=== PATIENT | male | born 1955 | race Caucasian/White ===

== ENCOUNTER 2018-10-29 07:32 | Day surgery (SDC) | payer MEDICARE ==
[~2018-10-29] VITALS: Ht 177.8 cm; Wt 108.9 kg
[~2018-10-29 07:32] MED LIST: AMLO5 PO; Advair Hfa 230-12 GM INH; Aspir 8181 MG PO; FISH1000 PO; FURO40 PO; LORA10; LOSA50 PO; METF500C PO; METO50ER PO; NAPR500 PO; VITAMIN D31000 UNIT PO; Vitamin C100 M1
--- NOTE | 2018-10-29 07:52 | NUR ---
Ambulatory in Day SurgeryPatient states colon prep results clear. History, Chart, Medications and Allergies reviewed before start of procedure.Lungs clear T/O to Auscultation. Patient confirms NPO status and agrees with scheduled surgery. Pre-Op teaching done. Pt verbalizes understanding. Patient States Post-Procedure ride home has been arranged.
--- NOTE | 2018-10-29 08:16 | NUR ---
AT BEDSIDE. PT HAS NO COMPLAINTS.
--- NOTE | 2018-10-29 08:50 | NUR ---
FROM ENDO ROOM TO STEP VSS PATIENT WAKING.
--- NOTE | 2018-10-29 08:52 | NUR ---
10/29/18 0852 Dolly Ruvalcaba History, Chart, Medications and Allergies reviewed before start of procedure.PATIENT DETERMINED TO BE ASA APPROPRIATE FOR PROPOFOL SEDATION PRIOR TO START OF PROCEDURE BY .MONITOR INTACT WITH CONTINUOUS PULSE OXIMETRY AND INTERMITTENT BP.3-LEAD EKG REVIEWED WITH PHYSICIAN PRIOR TO START OF PROCEDURE.O2 VIA N/C INTACT THROUGHOUT SEDATION/PROCEDURE.
--- NOTE | 2018-10-29 09:13 | NUR ---
DISCHARGED WITH ALL BELONGINGS AND DISCHARGE INSTRUCTIONS. VSS ESCORTED OUT WITH RN AND . PATIENT HEADING DOWN STAIRS TO CAFE FOR BREAKFAST
--- NOTE | 2018-10-29 13:20 | NUR ---
The patient gave this registered nursing professor permission to participate and be involved in his care 10/29/18.
== END 2018-10-29 22:53 | disposition home or self-care (01) ==
LOC: ORSCMMR 07:32 → ORD 08:30 → ORSCMMR 22:53
PROVIDERS: Internal Medicine Gastroenterology
PROC: 0DBN8ZX Excision of Sigmoid Colon, Via Natural or Artificial Opening Endoscopic, Diagnostic (ICD-10-PCS; principal; 2018-10-29 08:30)
PROC: 0DBK8ZX Excision of Ascending Colon, Via Natural or Artificial Opening Endoscopic, Diagnostic (ICD-10-PCS; principal; 2018-10-29 08:30)
DX: Z12.11 Encounter for screening for malignant neoplasm of colon (principal); D12.2 Benign neoplasm of ascending colon; K63.5 Polyp of colon; Z86.010 Personal history of colon polyps; I10 Essential (primary) hypertension; E11.9 Type 2 diabetes mellitus without complications; Z79.84 Long term (current) use of oral hypoglycemic drugs; Z79.899 Other long term (current) drug therapy
CPT/HCPCS: 82947; 88305; J7120

== ENCOUNTER 2020-10-06 14:38 | Emergency (ER) | payer MEDICARE ==
[~2020-10-06] VITALS: Ht 172.7 cm; Wt 113.4 kg
[2020-10-06 17:58] LABS: Source, Urine Clean Catch
[2020-10-06 18:08] LABS: Appearance, Urine Clear (Clear); Bilirubin, Urine Neg (Neg); Blood, Urine Neg (Neg); Color, Urine Yellow (P-Yellow); Glucose Qualitative, Urine 1+ (Neg); Ketones, Urine Neg (Neg); Leukocyte Esterase, Urine Neg (Neg); Nitrite, Urine Neg (Neg); Protein, Urine Neg (Neg); Urobilinogen, Urine NORM (Normal)
== END 2020-10-06 18:48 | disposition home or self-care (01) ==
LOC: ER 14:38
PROVIDERS: Physician Assistant
DX: N99.89 Other postprocedural complications and disorders of genitourinary system (principal); R33.8 Other retention of urine; I10 Essential (primary) hypertension; E11.9 Type 2 diabetes mellitus without complications; Z79.84 Long term (current) use of oral hypoglycemic drugs; Z79.899 Other long term (current) drug therapy; Y83.8 Other surgical procedures as the cause of abnormal reaction of the patient, or of later complication, without mention of misadventure at the time of the procedure
CPT/HCPCS: 51702; 81003; 99283-25

== ENCOUNTER 2020-10-08 19:27 | Inpatient (IN) | payer MEDICARE ==
[~2020-10-08] VITALS: Ht 172.7 cm; Wt 122.7 kg
[2020-10-08 20:03] LABS: BASOPHILS ABSOLUTE AUTO 0.02 K/mm3 (0.00-0.23); BASOPHILS PERCENT AUTO 0 % (0-2); EOSINOPHILS ABSOLUTE AUTO 0.01 K/mm3 (0.00-0.68); EOSINOPHILS PERCENT AUTO 0 % (0-6); Hematocrit 20.2 % (37.0-53.0); Hemoglobin 6.2 g/dL (13.5-17.5); IMMATURE GRAN ABSOLUTE AUTO 0.07 K/mm3 (0.00-0.10); IMMATURE GRAN PERCENT AUTO 1 % (0-1); LYMPHOCYTES ABSOLUTE AUTO 1.06 K/mm3 (0.84-5.20); LYMPHOCYTES PERCENT AUTO 8 % (21-46); MONOCYTES ABSOLUTE AUTO 0.85 K/mm3 (0.16-1.47); MONOCYTES PERCENT AUTO 7 % (4-13); Mean Corpuscular HGB 23.4 pg (26.0-34.0); Mean Corpuscular HGB Conc 30.7 g/dL (31.5-36.5); Mean Corpuscular Volume 76 fL (80-100); Mean Platelet Volume 9.3 fL (9.1-12.4); NEUTROPHILS ABSOLUTE AUTO 10.61 K/mm3 (1.96-9.15); NEUTROPHILS PERCENT AUTO 84 % (41-73); NRBC ABSOLUTE 0.02 K/mm3 (0.00-0.02); NRBC Auto 0.2 /100 WBC (0.0-0.2); Platelet Count 315 K/mm3 (150-400); RDW Coefficient Variation 17.9 % (11.7-14.2); RDW Standard Deviation 49.3 fL (35.1-46.3); Red Blood Cell Count 2.65 M/mm3 (4.30-5.90); White Blood Cell Count 12.62 K/mm3 (4.00-11.30)
[2020-10-08 20:21] LABS: Troponin I 0.317 ng/mL (0.000-0.040)
[2020-10-08 20:33] LABS: Alanine Aminotransfer (ALT/SGP 68 U/L (12-78); Albumin/Globulin Ratio 0.7 (0.8-1.8); Alk Phos 107 U/L (50-136); Anion Gap 13 mmol/L (6-16); Aspartate Aminotrans (AST/SGOT 67 U/L (12-37); Bilirubin, Total 0.6 mg/dL (0.1-1.0); Blood Urea Nitrogen 23 mg/dL (8-24); Bun/Creatinine Ratio 25.5 (12.0-20.0); CO2, Blood 19 mmol/L (21-32); Calcium, Blood 8.6 mg/dL (8.5-10.1); Chloride, Blood 84 mmol/L (98-108); Globulin, Blood 4.1 g/dL (2.2-4.0); Glomerular Filtration Rate >60 (60-); Glucose, Blood 173 mg/dL (70-99); Potassium, Blood 3.8 mmol/L (3.5-5.5); Sodium, Blood 116 mmol/L (136-145); Total Protein, Blood 7.1 g/dL (6.4-8.2)
[2020-10-08 22:29] LABS: Thyroid Stimulating Hormone 0.483 uIU/mL (0.360-4.800)
[2020-10-08 23:22] LABS: Uric Acid, Blood 8.2 mg/dL (3.5-7.2)
[2020-10-09] MEDS ORDERED: ACET500 PO (00:43)
[2020-10-09 04:16] LABS: Anion Gap 13 mmol/L (6-16); Blood Urea Nitrogen 20 mg/dL (8-24); Bun/Creatinine Ratio 22.1 (12.0-20.0); CO2, Blood 22 mmol/L (21-32); Calcium, Blood 8.5 mg/dL (8.5-10.1); Chloride, Blood 86 mmol/L (98-108); Creatinine, Blood 0.91 mg/dL (0.60-1.20); Glomerular Filtration Rate >60 (60-); Glucose, Blood 151 mg/dL (70-99); Phosphorus, Blood 2.8 mg/dL (2.5-4.9); Potassium, Blood 3.6 mmol/L (3.5-5.5); Sodium, Blood 121 mmol/L (136-145); Troponin I 0.342 ng/mL (0.000-0.040)
[2020-10-09 06:20] LABS: BASOPHILS ABSOLUTE AUTO 0.01 K/mm3 (0.00-0.23); BASOPHILS PERCENT AUTO 0 % (0-2); EOSINOPHILS ABSOLUTE AUTO 0.04 K/mm3 (0.00-0.68); EOSINOPHILS PERCENT AUTO 0 % (0-6); Hematocrit 21.2 % (37.0-53.0); Hemoglobin 6.6 g/dL (13.5-17.5); IMMATURE GRAN ABSOLUTE AUTO 0.06 K/mm3 (0.00-0.10); IMMATURE GRAN PERCENT AUTO 1 % (0-1); LYMPHOCYTES ABSOLUTE AUTO 1.24 K/mm3 (0.84-5.20); LYMPHOCYTES PERCENT AUTO 11 % (21-46); MONOCYTES PERCENT AUTO 9 % (4-13); Mean Corpuscular HGB 23.9 pg (26.0-34.0); Mean Corpuscular HGB Conc 31.1 g/dL (31.5-36.5); Mean Corpuscular Volume 77 fL (80-100); Mean Platelet Volume 9.3 fL (9.1-12.4); NEUTROPHILS ABSOLUTE AUTO 9.09 K/mm3 (1.96-9.15); NEUTROPHILS PERCENT AUTO 80 % (41-73); NRBC ABSOLUTE 0.03 K/mm3 (0.00-0.02); NRBC Auto 0.3 /100 WBC (0.0-0.2); Platelet Count 313 K/mm3 (150-400); RDW Coefficient Variation 18.5 % (11.7-14.2); RDW Standard Deviation 51.5 fL (35.1-46.3); Red Blood Cell Count 2.76 M/mm3 (4.30-5.90); White Blood Cell Count 11.44 K/mm3 (4.00-11.30)
--- NOTE | 2020-10-09 06:47 | NUR ---
SHIFT SUMMARY PT ARRIVED TO THE ICU VIA GURNEY. TX TO BED WITH STANDBY ASSIST. ADMITTED TO ICU FOR POTENTIAL ADMINISTRATION OF HYPERTONIC SOLUTION FOR A SODIUM LEVEL OF 116 AND HGB OF 6.2. DAUGHTER AT BEDSIDE DURING INITIAL ASSESSMENT. PT ALERT AND ORIENTED BUT DAUGHTER SAYS HE IS SLOWER TO RESPOND THAN NORMAL AND HE IS CURRENTLY MORE FORGETFUL THAN USUAL. PT UNABLE TO REMAIN STILL FOR LONGER THAN 5 MINUTES. CONTINOUSLY ON THE CALL LIGHT REQUESTING TO REPOSITION, STATING "I HAVE NOT BEEN ABLE TO GET COMFORTABLE SINCE THE SURGERY" DENIES SEVERE PAIN, HAS BEEN TAKING TYENOL TO HELP WITH THE PAIN. PT HAD LUMBAR SX ON THE . ISABEL DRAIN IN PLACE. INCISION SITE OPEN TO AIR. PT PRESCRIBED A BACK BRACE BUT WILL NOT COMPLY DUE TO IT CAUSING HIM TO FEEL MORE SHORT OF BREATH. APPLIED THE BACK BRACE TO PT FOR APPROXIMATELY 30 MINUTES BUT PT QUICKLY BEGAN PULLING AT CORDS, TRYING TO REMOVE THE BRACE. DAUGHTER STATES "PT IS NOT COMPLYING WITH THE RECOVERY PLAN AND WILL NOT WEAR HIS BACK BRACE" PT SCHEDULED FOR FOLLOW UP WITH THE SURGEON IN [place] TODAY, 10-09-20. PT HAS NOT BEEN ABLE TO EAT SINCE THE DUE TO NAUSEA, STATES "ALL I HAVE HAD IS SPAGHETTI AND AN EGG SINCE THE ". FREQUENTLY REQUESTING FOOD BUT C/O NAUSEA, ADVISED PT OF NEED FOR NAUSEA TO DIMINISH PRIOR TO EATING. TREATED NAUSEA c PRN ZOFRAN. PT ALSO HAVING ISSUES WITH URINATION SECONDARY TO SURGERY. PT DIAGNOSED WITH PNEUMONIA 3 WEEKS AGO. COMPLETED 10 DAY COURSE OF ABX PRIOR TO BACK SX. HAVING URINARY RETENTION POST OP. SCHMITZ CATH DUE TO URINARY RETENTION. 24 HR URINE IN PROGRESS. WILL CONTINUE TO MONITOR, REPORT TO ONCOMING NURSE.
[2020-10-09 12:56] LABS: Hematocrit 24.3 % (37.0-53.0); Hemoglobin 7.7 g/dL (13.5-17.5)
[2020-10-09 16:27] LABS: Stool Occult Blood Guaiac 1 Neg (Neg)
--- NOTE | 2020-10-09 18:14 | NUR ---
RECEIVED PT FROM ICU, ALERT AND ORIENTED X4, PT MAKES NO C/O SOB OR PAIN. PT IN CHAIR EATING DINNER, CALM AND COOPERATIVE. PT WILL CONT. TO BE MONITORED AND MEDICATED PER EMAR. PT HAS FC AND 24H URIN COLLECTION. ISABEL DRAIN DRAINING AND WNL. STAFF WILL CONT. TO MONITOR FOR CHANGES.
--- NOTE | 2020-10-10 02:08 | NUR ---
PHYSICIAN CORRESPONDENCE CONTINUES TO HAVE HICCUPS WITHOUT RELIEF FROM CURRENT MEDICATION ORDERS OR OTHER NON-PHARMACOLOGIC SUGGESTIONS. NEW ORDER FOR REGLAN IV. ALSO, NO ORDER FOR SCHMITZ CATHETER WHICH WAS PLACED OUTPT ACCORDING TO PATIENT FOR RETENTION AFTER BACK SX. NEW ORDER FOR URINE CATHETER PLACED PER ON-CALL PHYSICIAN.
[2020-10-10 04:34] LABS: Protein, Urine Quantitative 24.4 mg/dL (0.0-11.9)
[2020-10-10 05:24] LABS: Hematocrit 23.5 % (37.0-53.0); Hemoglobin 7.4 g/dL (13.5-17.5)
[2020-10-10 05:47] LABS: Albumin, Blood 2.8 g/dL (3.4-5.0); Anion Gap 10 mmol/L (6-16); Blood Urea Nitrogen 15 mg/dL (8-24); Bun/Creatinine Ratio 17.5 (12.0-20.0); CO2, Blood 24 mmol/L (21-32); Calcium, Blood 8.4 mg/dL (8.5-10.1); Chloride, Blood 89 mmol/L (98-108); Creatinine, Blood 0.86 mg/dL (0.60-1.20); Glomerular Filtration Rate >60 (60-); Glucose, Blood 137 mg/dL (70-99); Magnesium, Blood 2.1 mg/dL (1.6-2.4); Phosphorus, Blood 1.9 mg/dL (2.5-4.9); Potassium, Blood 3.2 mmol/L (3.5-5.5); Sodium, Blood 123 mmol/L (136-145)
--- NOTE | 2020-10-10 08:06 | NUR ---
SHIFT SUMMARY A/O, ABLE TO MAKE NEEDS KNOWN. COOPERATIVE WITH CARE. CALLS AND ANSWERS QUESTIONS APPROPRIATELY. NO C/O PAIN/DISCOMFORT. DID HOWEVER COMPLAIN OF HICCUPS WHICH ARE NOT NEW TO HIM; NEW ORDER FOR REGLAN PER ON-CALL PROVIDER. STATED REGLAN HELPED HIM OVERALL AND WAS ABLE TO GET RELIEF. 24 HR URINE SENT. SCHMITZ CATH REMAINS SECURED AND DRAINING TO GRAVITY. ISABEL DRAIN CONTINUES TO DRAIN WITHOUT COMPLICATIONS. DID NOT APPEAR TO REST MUCH OVERNIGHT; UP AND DOWN IN CHAIR MOST OF NIGHT. NOTED DARK COLORED LOOSE STOOL. CALL LIGHT AND BELONGINGS WITHIN REACH. REPORT GIVEN TO ONCOMING RN.
--- NOTE | 2020-10-10 13:35 | NUR ---
SCHMITZ CATH D'C. PATIENT AWARE NEEDS TO USE URINAL. FLOMAX GIVEN PRIOR. AWARE NEEDS TO URINATE WITHIN 6 HOURS. WCTM
--- NOTE | 2020-10-10 16:13 | NUR ---
ALERT. ORIENTED. VERY DROWSEY TODAY. HAS URINATED SINCE SCHMITZ HAS BEEN D'C. ONE PERSON TO CHAIR OR BATHROOM. RED DRAINAGE FROM ISABEL DRAIN ON BACK. LONG SURGICAL SCAR MIDDLE LOWER BACK LOOKS TO BE HEALING. UNLABORED RESPIRATIONS. EDEMA BLE +1. TELE ON AND RUNNING SR IN 90'S PER TECH. COOPERATIVE. ABLE TO MAKE NEEDS KNOWN. WCTM.
--- NOTE | 2020-10-11 05:46 | NUR ---
NAILHEAD SETTER SUMMARY PT AAOX4 AND PLEASANT. 1 ASSIST FROM BED TO CHAIR W/ FWW. PT HAD SCHMITZ CATH DC'D ON DAYSHIFT AND HAS VOIDED MULTIPLE TIMES TONIGHT WITH THE URINAL. URINE OUTPUT JUST OVER 1200 ML TONIGHT. MEDICATED WITH TYLENOL FOR PAIN X1. PT HAS SPENT MOST OF THE NIGHT IN THE RECLINER PT STATES IT IS MORE COMFORTABLE. MINIMAL DRAINAGE NOTED IN ISABEL DRAIN IN PT'S BACK. VSS, WILL CONTINUE TO MONITOR.
[2020-10-11 06:01] LABS: Hematocrit 26.3 % (37.0-53.0); Hemoglobin 8.1 g/dL (13.5-17.5)
[2020-10-11 06:24] LABS: Albumin, Blood 2.7 g/dL (3.4-5.0); Anion Gap 5 mmol/L (6-16); Blood Urea Nitrogen 11 mg/dL (8-24); Bun/Creatinine Ratio 13.2 (12.0-20.0); CO2, Blood 29 mmol/L (21-32); Calcium, Blood 8.7 mg/dL (8.5-10.1); Chloride, Blood 95 mmol/L (98-108); Creatinine, Blood 0.83 mg/dL (0.60-1.20); Glomerular Filtration Rate >60 (60-); Glucose, Blood 118 mg/dL (70-99); Magnesium, Blood 2.2 mg/dL (1.6-2.4); Phosphorus, Blood 2.2 mg/dL (2.5-4.9); Sodium, Blood 129 mmol/L (136-145)
[2020-10-11] MEDS ORDERED: BUME2 PO (12:50)
[2020-10-11] MEDS ORDERED: TAMS.4ER PO (12:53)
--- NOTE | 2020-10-11 13:30 | NUR ---
REVIEW D'C WITH PATIENT. AWARE HAS MED AT [facility]. REVIEW ALL MEDS AND ANY CHANGES AND HOW/WHEN TO TAKE. AWARE HAS APPT W/SURGEON ON 10/16 AND F/U W/ 10/17 AT 9AM. AWARE NEEDS TO CALL FOR F/U. DISCUSS COUGH AND DEEP BREATHING. DRESSING TO BACK DRY AND INTACT WAS CHANGED YESTERDAY BY THIS RN. ISABEL DRAIN WITH REDDISH FLUID. ANSWER ALL QUESTIONS. AND CRYPTOLOGIST TO TAKE PATIENT OUT TO POV.
== END 2020-10-11 14:07 | disposition home or self-care (01) | DRG 640 ==
LOC: ER 19:27 → MEDS 22:26 → ICUW 22:26 → ER 10-09 00:17 → ICUE 10-09 00:17 → ICUW 10-09 00:17 → ICUE 10-09 00:20 → ICUW 10-09 00:20 → ICUE 10-09 13:09 → MEDS 10-09 17:34 → ICUE 10-09 17:34 → MEDS 10-11 14:07
PROVIDERS: Emergency Medicine; Internal Medicine; Internal Medicine Nephrology; ADMIT Internal Medicine
PROC: 30233N1 Transfusion of Nonautologous Red Blood Cells into Peripheral Vein, Percutaneous Approach (ICD-10-PCS; principal; 2020-10-08)
PROC: 8E0ZXY6 Isolation (ICD-10-PCS; 2020-10-08)
DX: E87.1 Hypo-osmolality and hyponatremia (principal); J96.01 Acute respiratory failure with hypoxia; I24.8 Other forms of acute ischemic heart disease; N17.9 Acute kidney failure, unspecified; D64.9 Anemia, unspecified; E87.70 Fluid overload, unspecified; I12.9 Hypertensive chronic kidney disease with stage 1 through stage 4 chronic kidney disease, or unspecified chronic kidney disease; E11.22 Type 2 diabetes mellitus with diabetic chronic kidney disease; Z20.828 Contact with and (suspected) exposure to other viral communicable diseases; N18.2 Chronic kidney disease, stage 2 (mild); Z85.51 Personal history of malignant neoplasm of bladder; Z87.891 Personal history of nicotine dependence; Z98.1 Arthrodesis status; E83.39 Other disorders of phosphorus metabolism; E87.6 Hypokalemia; E61.1 Iron deficiency
CPT/HCPCS: 36415; 36430; 71045; 71260; 80053; 80069; 81050; 82272; 82533; 82728; 82947; 83036; 83540; 83550; 83735; 83880; 83930; 83935; 84156; 84295; 84443; 84484; 84550; 85014; 85018; 85025; 86850; 86900; 86901; 86920; 93005; 93010; 93306; 94640; 94760; 96361; 96376; 99285-25; A9270; A9270-GY; J1815; J1940; J2405; J2543; J2765; J2916; J3480; J7030; J7050; J7060; P9016; Q9967

== ENCOUNTER 2022-02-20 09:05 | Day surgery (SDC) | payer MEDICARE ==
[~2022-02-20] VITALS: Ht 177.8 cm; Wt 107.7 kg
[~2022-02-20 09:05] MED LIST changes: +ACET500 PO; +BUME2 PO; +LORA10ER PO; +POTA10T PO; +SODCHL1 PO; +TAMS.4ER PO; +iron sulfate PO
--- NOTE | 2022-02-20 10:28 | NUR ---
02/20/22 1028 Ashley Rock History, Chart, Medications and Allergies reviewed before start of procedure. Patient confirms NPO status and agrees with scheduled surgery. 3-LEAD EKG REVIEWED WITH PHYSICIAN PRIOR TO START OF PROCEDURE. MONITOR INTACT WITH CONTINUOUS PULSE OXIMETRY AND INTERMITTENT BP. PATIENT DETERMINED TO BE ASA APPROPRIATE FOR PROPOFOL SEDATION PRIOR TO START OF PROCEDURE BY . Bite Block Placed & REMOVED AT END OF CASE.
--- NOTE | 2022-02-20 12:10 | NUR ---
Discharge instructions reviewed with patient. Patient verbalizes understanding. Copy given to patient to take home. RX FOR OMEPRAZOLE CALLED TO [facility]. PT TOLERATED WATER, NO C/O. Discharged via wheelchair to private car for ride home.
== END 2022-02-20 12:18 | disposition home or self-care (01) ==
LOC: ORSCMMR 09:05 → ORD 10:15 → ORSCMMR 10:15
PROVIDERS: Internal Medicine Gastroenterology
PROC: 0DB78ZX Excision of Stomach, Pylorus, Via Natural or Artificial Opening Endoscopic, Diagnostic (ICD-10-PCS; principal; 2022-02-20 10:15)
PROC: 0DBN8ZX Excision of Sigmoid Colon, Via Natural or Artificial Opening Endoscopic, Diagnostic (ICD-10-PCS; principal; 2022-02-20 10:15)
PROC: 0DBP8ZX Excision of Rectum, Via Natural or Artificial Opening Endoscopic, Diagnostic (ICD-10-PCS; principal; 2022-02-20 10:15)
PROC: 0DBK8ZX Excision of Ascending Colon, Via Natural or Artificial Opening Endoscopic, Diagnostic (ICD-10-PCS; principal; 2022-02-20 10:15)
PROC: 0DB98ZX Excision of Duodenum, Via Natural or Artificial Opening Endoscopic, Diagnostic (ICD-10-PCS; principal; 2022-02-20 10:15)
PROC: 0DBE8ZX Excision of Large Intestine, Via Natural or Artificial Opening Endoscopic, Diagnostic (ICD-10-PCS; principal; 2022-02-20 10:15)
PROC: 0DBL8ZX Excision of Transverse Colon, Via Natural or Artificial Opening Endoscopic, Diagnostic (ICD-10-PCS; principal; 2022-02-20 10:15)
DX: D50.0 Iron deficiency anemia secondary to blood loss (chronic) (principal); K62.5 Hemorrhage of anus and rectum; D12.2 Benign neoplasm of ascending colon; D12.3 Benign neoplasm of transverse colon; K52.832 Lymphocytic colitis; K29.70 Gastritis, unspecified, without bleeding; K57.30 Diverticulosis of large intestine without perforation or abscess without bleeding; Z86.010 Personal history of colon polyps; I10 Essential (primary) hypertension; E11.9 Type 2 diabetes mellitus without complications; Z85.51 Personal history of malignant neoplasm of bladder; Z79.899 Other long term (current) drug therapy
CPT/HCPCS: 82947; 88305; 88342; A9270; J2250; J2704; J7120

== ENCOUNTER 2023-03-25 11:06 | Day surgery (SDC) | payer OTHER ==
[~2023-03-25 11:06] MED LIST changes: +Amaryl1 MG PO; +CATAPRES0.1 MG PO; +FERSU300 PO; +MAGNESIUM OXID500 MG PO; +OMEP20ER PO; +TRAM50 PO
[2023-03-25] MEDS ORDERED: METO50 PO (11:26)
[2023-03-25] MEDS ORDERED: FURO40 PO (11:28)
[2023-03-25 11:30] VITALS: BP 129/93
--- NOTE | 2023-03-25 13:40 | NUR ---
PT BACK TO THE RECOVERY ROOM VIA BED AFTER PROCEDURE. AWAKE AND ALERT, DENIES ANY PAIN OR DISCOMFORT. RIGHT GROIN SITE WITH TEGADERM IN PLACE, NO BLEEDING OR SWELLING NOTED. VSS, CALL LIGHT IN REACH.
[2023-03-25 13:41] VITALS: BP 157/71
[2023-03-25 13:45] VITALS: BP 159/69
[2023-03-25 14:00] VITALS: BP 148/62
--- NOTE | 2023-03-25 14:26 | NUR ---
PT CONTINUES TO EAT LUNCH, ADDITIONAL PO FLUIDS GIVEN PER REQUEST. VSS, CALL LIGHT IN REACH. RIGHT GROIN SITE REMAINS SOFT AND NON-TENDER. HEAD OF BED ELEVATED TO 45 DEGREES.
[2023-03-25 14:31] VITALS: BP 148/124
[2023-03-25 14:58] VITALS: BP 159/97
--- NOTE | 2023-03-25 15:02 | NUR ---
PT AMBULATED TO THE BATHROOM WITHOUT DIFFICULTY, RIGHT GROIN REMAINS SOFT AND NON-TENDER. NO BLEEDING OR SWELLING NOTED AT SITE.
--- NOTE | 2023-03-25 15:26 | NUR ---
IV DC'D, CATH INTACT. PT VERBALIZED UNDERSTANDING OF DC INSTRUCTIONS AND FOLLOW UP INFO. RIGHT GROIN SITE REMAINS SOFT AND NON-TENDER. NO BLEEDING OR SWELLING AT SITE. PT OUT TO CAR VIA WHEELCHAIR.
== END 2023-03-25 15:55 | disposition home or self-care (01) ==
LOC: MHTC 11:06
DX: I70.1 Atherosclerosis of renal artery (principal); N26.1 Atrophy of kidney (terminal); I10 Essential (primary) hypertension; E11.9 Type 2 diabetes mellitus without complications; I25.10 Atherosclerotic heart disease of native coronary artery without angina pectoris
CPT/HCPCS: 76937; 99152; 99153; C1760; C1769; C1887; C1894; J1644; J2250; J3010; J7030; J7050; Q9967

== ENCOUNTER → 2024-04-28 | Outpatient (CLI) | payer OTHER ==
[~2024-04-28] MED LIST changes: +ASPI81CH PO; +Amlodipine Bes2.5 MG PO; +CLOP75; +Crestor40 MG; +Flonase 0.05% N16 GM; +Loratadine10 MG; +METO50 PO; +SOAANZ40 M1 PO
[2024-04-28 16:08] LABS: Percent Saturation 69.6 % (20.0-50.0)
== END ==
LOC: LAB SHORT 15:00 → LAB 15:00
PROVIDERS: Internal Medicine Hematology & Oncology
DX: D53.9 Nutritional anemia, unspecified (principal); E61.1 Iron deficiency
CPT/HCPCS: 82607; 82728; 82746; 83540; 83550

== ENCOUNTER 2024-06-02 12:21 | Inpatient (IN) | payer OTHER ==
[~2024-06-02] VITALS: Ht 177.8 cm; Wt 102.9 kg
[~2024-06-02 12:21] MED LIST changes: +ALBU90OI INH; +ALLO100 PO; +Acerola C500 MG PO; +B COMPLEX FORM0.4 MG PO; +CALC.25 PO; +CENTRUM SILVER1 EAC2 PO; +DILT180 PO; +HUMALOG KW100 UNIT/1 SC; +INSULANPEN SC; +IPRAT-ALBUT 0.5-3 ML INH; +JARDIANCE10 MG PO; +METO100ER PO; +TAMSULOSIN HCL0.4 M1 PO; +TORSE20 PO; +VISBIOME 112.51 EACH PO; +[UNRECOGNIZED DRUG - OTHER] PO
[2024-06-02 13:32] LABS: Hematocrit 21.6 % (37.0-53.0); Mean Corpuscular HGB Conc 32.4 g/dL (31.5-36.5); Mean Corpuscular Volume 93 fL (80-100); Mean Platelet Volume 10.9 fL (9.1-12.4); Platelet Count 65 K/mm3 (150-400); RDW Coefficient Variation 18.4 % (11.7-14.2); RDW Standard Deviation 62.5 fL (35.1-46.3); Red Blood Cell Count 2.33 M/mm3 (4.30-5.90)
[2024-06-02 13:56] LABS: Albumin, Blood 2.2 g/dL (3.4-5.0); Albumin/Globulin Ratio 0.4 (0.8-1.8); Bilirubin, Total 0.6 mg/dL (0.1-1.0); Bun/Creatinine Ratio 13.9 (12.0-20.0); Calcium, Blood 9.2 mg/dL (8.5-10.1); Creatinine, Blood 2.45 mg/dL (0.60-1.20); Globulin, Blood 4.9 g/dL (2.2-4.0); Potassium, Blood 3.3 mmol/L (3.5-5.5); Total Protein, Blood 7.1 g/dL (6.4-8.2)
[2024-06-02 14:06] LABS: White Blood Cell Count 0.24 K/mm3 (4.00-11.30)
[2024-06-02] MEDS ORDERED: Mag Hydrox/AL Hydrox/Simeth 30 ML UDC PO ONE (14:15)
[2024-06-02] MEDS ORDERED: NS 1,000 ML IV SCH ×2 (14:15→16:25)
[2024-06-02] MEDS ORDERED: Lidocaine 2% Viscous Soln 15 ML UDC PO ONE (14:15)
[2024-06-02 14:22] LABS: BASOPHILS PERCENT MAN 0 % (0-2); EOSINOPHILS PERCENT MAN 4 % (0-6); LYMPHOCYTES % ATYPICAL MANUAL 4 % (0-0); LYMPHOCYTES ABSOLUTE MAN 0.21 K/mm3 (0.84-5.20); LYMPHOCYTES PERCENT MAN 84 % (21-46); MONOCYTES PERCENT MAN 4 % (4-13); SEG NEUTROPHILS PERCENT MAN 4 % (41-73); TOTAL CELLS COUNTED 25
[2024-06-02] MEDS ORDERED: Phenyleph/Mineral Oil/Petrolat 1 APPLIC/57 GM Tube PR ONE (15:50)
[2024-06-02] MEDS ORDERED: Cefepime HCl 2,000 MG in NS 100 ML IV ONE (16:25)
[2024-06-02] MEDS ORDERED: Vancomycin HCL 2,000 MG in NS 500 ML IV ONE (16:55)
[2024-06-02] MEDS ORDERED: Ondansetron HCl 2 MG / ML 2ML Vial IV PRN (18:00)
[2024-06-02] MEDS ORDERED: Acetaminophen 325 MG TABLET PO PRN (18:00)
[2024-06-02] MEDS ORDERED: Ipratropium/Albuterol SulF 2.5-0.5MG/3 ML Amp INH PRN (18:10)
[2024-06-02] MEDS ORDERED: Albuterol HFA200 ACT/6.7 GM INH INH PRN (18:50)
[2024-06-02] MEDS ORDERED: Insulin Glargine-Yfgn 100 Unit/mL 3 ML SYR SC SCH (19:00)
[2024-06-02 20:47] VITALS: BP 125/74
--- NOTE | 2024-06-02 20:54 | NUR ---
ADMISSION REPORT RECEIVED FROM ER NURSE. PATIENT ARRIVED TO PCU 18. PATIENT REQUESTING TO STAND AND TRANSFER TO BED. PATIENT SLOW MOVING BUT IS ABLE TO TRANSFER WITH STAFF ASSISTANCE. PATIENT ALERT, ORIENTED x4, ABLE TO ANSWER ALL QUESTIONS APPROPRIATELY. PATIENT PALE IN COLOR. TACHYPNEIC WITH MOVEMENT. BP STABLE. ON MONITOR, PATIENT INITIALLY SATTING 77% ON RA, PATIENT PLACED ON 6L NC AND WAS ABLE TO RECOVER AFTER 5 MINUTES OF DEEP BREATHING. PATIENT TITRATED DOWN TO 3L, TOLERATING WELL, SPO2 MID 90s. RT NOTIFIED. TELE READING AFIB 90s. LOW GRADE FEVER OF 99.5 ON INITAL ASSESSMENT. NAUSEOUS ON ARRIVAL, ZOFRAN GIVEN PER EMAR. TOLERATED OTHER PO MEDICATION. PATIENT ORIENTED TO ROOM AND CALL LIGHT SYSTEM. BED IN LOW POSITION, HAS CALL LIGHT IN REACH.
[2024-06-02] MEDS ORDERED: Ascorbic Acid 250 MG Chew PO SCH (21:00)
[2024-06-02] MEDS ORDERED: Tamsulosin HCl 0.4 MG Cap PO SCH (21:00)
[2024-06-02 22:41] LABS: Magnesium, Blood 1.8 mg/dL (1.6-2.4)
[2024-06-02 22:42] LABS: Potassium, Blood 3.3 mmol/L (3.5-5.5)
[2024-06-02 23:35] VITALS: BP 121/65
[2024-06-02] MEDS ORDERED: Promethazine HCl 12.5 MG Supp PR ONE (23:45)
--- NOTE | 2024-06-03 01:00 | NUR ---
UPDATE PATIENT NAUSEOUS AND VOMITTING BILE COLORED LIQUID. MAX 50mls OUT IN EMESIS BAG. PATIENT RECIEVED ZOFRAN ON ADMISSION AND UNABLE TO ADMINISTER. ULTRASOUND AT BEDSIDE FOR RENAL SCAN. BOWEL MEASUREMENTS RELAYED TO THIS RN BY SCALEHOUSE ATTENDANT. CALL PLACED TO RESIDENT WITH UPDATE. RESIDENT TO PLACE ORDERS FOR ADDITIONAL IMAGING.
[2024-06-03 04:29] LABS: Hematocrit 24.4 % (37.0-53.0); Hemoglobin 7.8 g/dL (13.5-17.5); Mean Corpuscular HGB 29.8 pg (26.0-34.0); Mean Corpuscular Volume 93 fL (80-100); Mean Platelet Volume 11.3 fL (9.1-12.4); Platelet Count 68 K/mm3 (150-400); RDW Coefficient Variation 18.6 % (11.7-14.2); RDW Standard Deviation 63.7 fL (35.1-46.3); Red Blood Cell Count 2.62 M/mm3 (4.30-5.90)
[2024-06-03 04:42] LABS: White Blood Cell Count 0.22 K/mm3 (4.00-11.30)
[2024-06-03 04:43] LABS: International Normalized Ratio 1.26; Prothrombin Time Results 13.3 Sec (9.7-11.5)
[2024-06-03 05:02] LABS: Alanine Aminotransfer (ALT/SGP 35 U/L (12-78); Albumin, Blood 1.9 g/dL (3.4-5.0); Albumin/Globulin Ratio 0.4 (0.8-1.8); Alk Phos 85 U/L (50-136); Anion Gap 11 mmol/L (3-11); Aspartate Aminotrans (AST/SGOT 17 U/L (12-37); Bilirubin, Total 0.5 mg/dL (0.1-1.0); Blood Urea Nitrogen 44 mg/dL (8-24); Bun/Creatinine Ratio 12.4 (12.0-20.0); CO2, Blood 31 mmol/L (21-32); Calcium, Blood 8.7 mg/dL (8.5-10.1); Chloride, Blood 100 mmol/L (98-108); Creatinine, Blood 3.54 mg/dL (0.60-1.20); Globulin, Blood 4.7 g/dL (2.2-4.0); Glomerular Filtration Rate 18 (60-); Glucose, Blood 121 mg/dL (70-99); Magnesium, Blood 1.8 mg/dL (1.6-2.4); Phosphorus, Blood 4.5 mg/dL (2.5-4.9); Potassium, Blood 3.2 mmol/L (3.5-5.5); Sodium, Blood 139 mmol/L (136-145); Total Protein, Blood 6.6 g/dL (6.4-8.2)
[2024-06-03 05:09] LABS: BASOPHILS PERCENT MAN 0 % (0-2); EOSINOPHILS ABSOLUTE MAN 0.02 K/mm3 (0.00-0.68); EOSINOPHILS PERCENT MAN 12 % (0-6); LYMPHOCYTES ABSOLUTE MAN 0.14 K/mm3 (0.84-5.20); LYMPHOCYTES PERCENT MAN 64 % (21-46); METAMYELOCYTE PERCENT MAN 4 % (0-0); MONOCYTES ABSOLUTE MAN 0.01 K/mm3 (0.16-1.47); MONOCYTES PERCENT MAN 8 % (4-13); NEUTROPHILS ABSOLUTE MAN 0.02 K/mm3 (1.96-9.15); SEG NEUTROPHILS PERCENT MAN 12 % (41-73); TOTAL CELLS COUNTED 25
[2024-06-03] MEDS ORDERED: NS 250 ML IV PRN (05:25)
[2024-06-03 05:34] VITALS: BP 105/83
[2024-06-03] MEDS ORDERED: Cefepime HCl 2,000 MG in NS 100 ML IV SCH (06:00)
[2024-06-03] MEDS ORDERED: Omeprazole 20 MG CapCR PO SCH (06:00)
--- NOTE | 2024-06-03 06:21 | NUR ---
SHIFT SUMMARY PATIENT DROWSY BUT WAKES TO VERBAL STIMULI. ANSWERING QUESTIONS APPROPRIATELY. BP STABLE. PATIENT ON 2-6L DURING THE NIGHT, PATIENT REPORTING SOME SHORTNESS OF BREATH. SEE ADMISSION NOTE. SPO2 LOW 90s. ON CARDIAC MONITORING DURING THE NIGHT. STANDING AT BEDSIDE TO USE URINAL, ADEQUATE OUTPUT. CT ABDOMEN/PELVIS COMPLETED THIS SHIFT, PATIENT AWAITING GENERAL SURGERY CONSULT THIS AM. NO CHANGES SINCE PREVIOUS NOTE, WILL REPORT TO DAY SHIFT RN.
[2024-06-03] MEDS ORDERED: Pantoprazole Sodium 40 MG Injection IV SCH (06:30)
[2024-06-03 07:00] VITALS: BP 117/78
[2024-06-03] MEDS ORDERED: Potassium Chloride 10 Meq Tablet SA PO ONE ×2 (07:15→12:50)
[2024-06-03] MEDS ORDERED: Insulin Human Lispro 100 Units/ML 3ML Syringe SC SCH (07:30)
[2024-06-03] MEDS ORDERED: Potassium Chloride 20 MEQ TabCR PO SCH (08:00)
[2024-06-03] MEDS ORDERED: OxyCODONE HCL 5 MG TAB PO PRN (08:20)
[2024-06-03] MEDS ORDERED: Bumetanide 0.25 MG/ML 10ML Vial IV SCH (09:00)
[2024-06-03] MEDS ORDERED: Heparin Sodium,Porcine 5,000 UNIT/0.5 ML SDV SC SCH (09:00)
[2024-06-03] MEDS ORDERED: Allopurinol 100 MG Tab PO SCH (09:00)
[2024-06-03] MEDS ORDERED: Furosemide 10 MG / ML 2ML Vial IV SCH (09:00)
[2024-06-03] MEDS ORDERED: Multivitamins/Minerals 1 Tab PO SCH (09:00)
[2024-06-03] MEDS ORDERED: Metoprolol Succinate 50 MG TABCR PO SCH (09:00)
[2024-06-03] MEDS ORDERED: Rosuvastatin Calcium 10 MG Tab PO SCH ×2 (09:00)
[2024-06-03] MEDS ORDERED: Calcitriol 0.25 MCG Cap PO SCH (09:00)
[2024-06-03 11:52] VITALS: BP 103/62
[2024-06-03] MEDS ORDERED: Darbepoetin Alfa In Albumn Sol 40 MCG/0.4 ML SC SCH (12:00)
[2024-06-03] MEDS ORDERED: Prochlorperazine Edisylate 10 mg Vial IV PRN (12:55)
[2024-06-03] MEDS ORDERED: Dextrose 50% 50 ML Syringe ONE (16:49)
[2024-06-03] MEDS ORDERED: Dextrose 50% 50 ML Syringe IV ONE (16:50)
--- NOTE | 2024-06-03 16:58 | NUR ---
MET WITH PATIENT AND FAMILY TO ASSESS SYMPTOMS. SURGICAL WAS CONSULTED AND EXPRESSED TO FAMILY THAT HE WOULD NOT BE A CANDITATE FOR SURGICAL INTERVENTIONS BUT ADVISED THAT AN NG TUBE MAY BE BENIFICIAL, EXPRESSED CONCERNS THAT THIS MAY CAUSE COMPLICATIONS. DISUCSSED RISKS VS BENEFITS OF THIS INTERVENTION. FAMILY EXPRESSED THAT THEY WOULD LIKE TO TALK TO PROVIDER TO MAKE DECISIONS. CALLED DR. CHRISTIE AND SHE WENT TO DISCUSS GOALS OF CARE FURTHER WITH THE FAMILY, AND DISCUSS OPTIONS
[2024-06-03] MEDS ORDERED: Scopolamine Hydrobromide Patch TOP PRN (17:20)
[2024-06-03] MEDS ORDERED: LORazepam 1 MG Tab PO PRN (17:20)
[2024-06-03] MEDS ORDERED: Morphine Sulfate 20 MG/1ML 1 ML Oral Syringe SL PRN (17:20)
[2024-06-03] MEDS ORDERED: Atropine Sulfate 1% Opth Soln 2ML BTL SL PRN (17:20)
[2024-06-03] MEDS ORDERED: Acetaminophen 650 MG Supp PR PRN (17:20)
--- NOTE | 2024-06-03 18:16 | NUR ---
END OF SHIFT / COMFORT CARE PT A&O X4 UPON CARE ASSUMPTION. VSS. SPO2 > 92% ON 2-5L NC THIS SHIFT. MONITOR SHOWING AFIB/AFLUTTER, HR 100-130s. PT C/O BACK PAIN & ABD PAIN. PT MEDICATED W/ PRN PO OXYCODONE W/ PT REPORT OF IMPROVEMENT. PT REQUIRING FREQUENT REPOSITIONING W/ STAFF ASSISTANCE. PT 1-2 PERSON ASSIST. PT ABD DISTENDED & FIRM. PT W/ BRIGHT YELLOW EMESIS INTERMITTENTLY THIS AM/AFTERNOON. PT MEDICATED W/ PRN IV ZOFRAN W/ NO IMPROVEMENT. CALL TO MD CHRISTIE W/ ORDER FOR IV COMPAZINE W/ NO FURTHER EMESIS. MD SYKES TO PT BEDSIDE FOR CONSULT. PT SPOUSE TEARFUL AT BEDSIDE. PT DIFFICULTY GETTING COMFORTABLE & BREATHING BECOMING MORE LABOROUS. ABD APPEARING MORE DISTENDED. PALLIATIVE CARE NURSE TO PT BEDSIDE FOR DISCUSSION W/ PT & PT SPOUSE. MD CHRISTIE THEN TO PT BEDSIDE FOR DISCUSSION W/ PT & FAMILY. DR CHRISTIE ADDRESSING PT FAMILY QUESTIONS & CONCERNS. DECISION MADE FOR COMFORT CARE. FAMILY REMAINS AT BEDSIDE.
[2024-06-03] MEDS ORDERED: Morphine Sulfate 10 MG/ML 1MLSYR IV PRN (22:55)
--- NOTE | 2024-06-04 | NUR ---
FINAL DISCHARGE PATIENT COMFORT CARE STATUS. FAMILY AT BEDSIDE SINCE SHIFT CHANGE. VERIFICATION COMPLETED WITH SHELL MOLDER. TIME OF AT 2337. RESIDENT ASHLEY NOTIFIED. NURSING OFFSET PRESS OPERATOR NOTIFIED. FAMILY CHOSE [facility] FOR HOME. FAMILY REQUESTING TIME WITH PATIENT.
[2024-06-04] MEDS ORDERED: Cefepime HCl 2,000 MG in NS 100 ML IV SCH (09:00)
== END 2024-06-04 01:30 | DRG 871 ==
LOC: ER 12:21 → PCU 18:38
PROVIDERS: Internal Medicine Nephrology; Physician Assistant; ADMIT Family Medicine
PROC: 3E03329 Introduction of Other Anti-infective into Peripheral Vein, Percutaneous Approach (ICD-10-PCS; principal; 2024-06-02)
PROC: 0T9B70Z Drainage of Bladder with Drainage Device, Via Natural or Artificial Opening (ICD-10-PCS; 2024-06-02)
DX: A41.9 Sepsis, unspecified organism (principal); D61.810 Antineoplastic chemotherapy induced pancytopenia; J96.01 Acute respiratory failure with hypoxia; C34.90 Malignant neoplasm of unspecified part of unspecified bronchus or lung; I13.0 Hypertensive heart and chronic kidney disease with heart failure and stage 1 through stage 4 chronic kidney disease, or unspecified chronic kidney disease; N17.9 Acute kidney failure, unspecified; K56.600 Partial intestinal obstruction, unspecified as to cause; I31.39 Other pericardial effusion (noninflammatory); C78.39 Secondary malignant neoplasm of other respiratory organs; N25.81 Secondary hyperparathyroidism of renal origin; R71.0 Precipitous drop in hematocrit; Z66 Do not resuscitate; Z51.5 Encounter for palliative care; I48.91 Unspecified atrial fibrillation; E11.22 Type 2 diabetes mellitus with diabetic chronic kidney disease; N18.9 Chronic kidney disease, unspecified; I50.9 Heart failure, unspecified; E78.5 Hyperlipidemia, unspecified; D64.81 Anemia due to antineoplastic chemotherapy; D69.59 Other secondary thrombocytopenia; T45.1X5A Adverse effect of antineoplastic and immunosuppressive drugs, initial encounter; M10.9 Gout, unspecified; E87.6 Hypokalemia; E88.09 Other disorders of plasma-protein metabolism, not elsewhere classified; R50.81 Fever presenting with conditions classified elsewhere; L89.152 Pressure ulcer of sacral region, stage 2; E87.70 Fluid overload, unspecified; Z79.899 Other long term (current) drug therapy; Z79.82 Long term (current) use of aspirin; Z85.51 Personal history of malignant neoplasm of bladder; Z98.1 Arthrodesis status; Z87.891 Personal history of nicotine dependence; Z92.21 Personal history of antineoplastic chemotherapy; Z92.3 Personal history of irradiation; Z91.048 Other nonmedicinal substance allergy status; Z79.4 Long term (current) use of insulin
CPT/HCPCS: 36415; 71046; 74176; 76770; 80053; 80202; 82947; 83605; 83735; 84100; 84132; 84145; 84484; 84550; 85025; 85610; 85730; 87040; 93005; 93010; 93308; 93321; 94640; 94664; 94760; 96365; 99285-25; A9270; J0692; J0780; J0881; J1644; J1815; J2270; J2405; J2470; J3370; J7030; J7040